=== PATIENT | male | born 1945 | race Caucasian/White ===

== ENCOUNTER → 2016-11-01 06:51 | Day surgery (SDC) | payer BC ==
[~2016-11-01 06:51] MED LIST: Acetaminophen TAB* 325 MG PO PRN; Buffered Lidocaine 1% SYRIN* 3 ML/SYR SYRINGE INTRADERM ONE; Cyclopentolate 1% OPTH.SOL* 2 ML BTL ONE; Flurbiprofen 0.03% OPTH.SOL* 2.5 ML BTL ONE; Lidocaine 1% MPF* 2 ML VIAL ONE; Lidocaine 2% EPI 1:200000 MPF* 20 ML VIAL ONE; Midazolam* 1 MG/ML 2 ML VIAL (2 MG) ONE; Neomycin/Polymy/Dex OPTH.SUSP* MAXITROL 0.1% 5 ML ONE; Phenylephrine 2.5% OPTH.SOL* 2 ML BTL ONE; Povidone Iodine 5% OPTH* 30 ML BTL ONE; Proparacaine 0.5% OPHTH.SOL* 15 ML BTL ONE; acetaZOLAMIDE TAB* 250 MG ONE
[2016-11-01 09:21] VITALS: BP 121/72
--- NOTE | 2016-11-01 16:27 | OP ---
DATE OF OPERATION: 11/01/16 [facility] DATE OF : 47 SURGEON: Constantino Stack MD. PREOPERATIVE DIAGNOSIS: Cataract, left eye. POSTOPERATIVE DIAGNOSIS: Cataract, left eye. OPERATIVE PROCEDURE: Phacoemulsification, left eye, with IOL. DESCRIPTION OF PROCEDURE: The patient was brought to the operating room after being given 1/2% Alcaine with epinephrine drops in the preoperative area. The eye was prepped and draped in the usual sterile fashion. Sterile drape and eyelid speculum were placed. Again, topical 1/2% Alcaine with epinephrine was given. A paracentesis incision was made at the 3 o'clock position with the No.75 blade. Clear cornea incision 2.2 x 2.2-mm was created at the 6 o'clock position starting at the anterior limbus using the 2.2-mm keratome. The anterior chamber was irrigated with 0.4 mL of 1% non-preservative intracameral lidocaine and filled with DisCoVisc. A capsulorrhexis was completed using the cystotome and the Utrata forceps. Hydrodissection was performed with balanced salt solution. The lens nucleus was removed with the Phacoemulsification handpiece without incident. Cortex was removed with the irrigation-aspiration handpiece. The capsular bag was re-inflated using DisCoVisc and an [id number] implant was inserted with the shooter. The irrigation-aspiration handpiece was used to remove all residual DisCoVisc. The eye was refilled with balanced salt solution and the wound checked and found to be watertight. Topical Maxitrol drops were given. [id number]/[facility] #: [id number] [facility]
== END | disposition home or self-care (01) ==
LOC: OREAST 06:51
PROVIDERS: ATTEND Specialist
DX: H25.812 Combined forms of age-related cataract, left eye (principal); H43.812 Vitreous degeneration, left eye; H35.371 Puckering of macula, right eye; Z85.46 Personal history of malignant neoplasm of prostate
CPT/HCPCS: J2250; V2632

== ENCOUNTER 2019-10-14 19:58 | Emergency (ER) | payer MEDICARE, BC ==
--- OUTSIDE RECORDS SUMMARY | 2019-10-14 20:25 | XMS REPORT | Summary of Care ---
:1945 Author Organization [facility] Address [address] [facility] [place] [address] Care Team Providers Name Role Phone Kerry Morse MD Primary Care Provider Reason for Visit Reason Comments Check Up cronic hiccups, 3 big bowl movements yesterday, nausiated and vomitting Encounter Details Date Type Department Care Team Description 10/10/[address] Mini Heartburn (Primary Dx); Practice Kerry Gale MD Chest pressure; [address] Bilious vomiting with nausea; [place] [address] [place] [address] Hiccups; [phone] Need for vaccination Allergies Active Allergy Reactions Severity Noted Date Comments Aspirin 10/09/2007 TINNITUS documented as of this encounter (statuses as of 10/10/2019) Medications Medication Sig Dispensed Refills Start Date End Date Status clomiPHENE Take 25 mg by 0 Active (CLOMID) 50 MG mouth EVERY Oral Tab OTHER DAY. ciclopirox 1 Appl by 1 Tube 1 06/27/2016 Active (LOPROX) 0.77 % Topical route Apply externally TWICE DAILY. Cream Ibuprofen 200 MG Take 200 mg 0 Active Oral Cap by mouth DAILY NEEDED. naproxen Take 250 mg 0 Active (NAPROSYN) 250 MG by mouth TWO Oral Tab TIMES DAILY NEEDED. ondansetron Take 1 Tab by 20 Tab 1 10/10/2019 Active (ZOFRAN ODT) 4 MG mouth TWO Oral TABLET TIMES DAILY DISPERSIBLEIndica NEEDED tions: Bilious (nausea, vomiting with vomiting). nausea famotidine Take 1 Tab by 30 Tab 1 10/10/2019 Active (PEPCID) 40 MG mouth DAILY Oral NEEDED TabIndications: (heartburn). Bilious vomiting with nausea diclofenac 2 g by 1 Tube 3 08/29/2019 Discontinued (No (VOLTAREN) 1 % Topical route 0 longer clinically Transdermal FOUR TIMES indicated) GelIndications: DAILY. Acute pain of right knee documented as of this encounter (statuses as of 10/10/2019) Active Problems Problem Noted Date Hallux valgus, right 11/05/2018 Overview: Added automatically from request for surgery [id number] Personal history of malignant neoplasm of prostate 10/09/2007 documented as of this encounter (statuses as of 10/10/2019) Resolved Problems Problem Noted Date Resolved Date Epistaxis 10/09/2007 10/05/2011 Vitreous Separation 10/09/2007 10/05/2011 documented as of this encounter (statuses as of 10/10/2019) Immunizations Name Administration Dates Next Due Influenza Vaccine High Dose 05/18/2018, 06/10/2016 PNEUMOCOCCAL POLYSACCHARIDE VACCINE 10/30/2018 Pneumococcal Conjugate(13 Valent) 07/04/2016 TDAP Vaccine 07/04/2016 documented as of this encounter Social History Tobacco Use Types Packs/Day Years Used Date Never Smoker Smokeless Tobacco: Never Used Alcohol Use Drinks/Week oz/Week Comments Yes 2 Standard drinks or equivalent 2.0 rare Sex Assigned at Date Recorded Not on file documented as of this encounter Last Filed Vital Signs Vital Sign Reading Time Taken Comments Blood Pressure 126/68 10/10/2019 2:53 PM EST Pulse 68 10/10/2019 2:53 PM EST Temperature 37.5 10/10/2019 2:53 PM EST C (99.5 F) Respiratory Rate - - Oxygen Saturation 98% 10/10/2019 2:53 PM EST Inhaled Oxygen Concentration - - Weight 75.8 kg (167 lb) 10/10/2019 2:53 PM EST Height 167.6 cm (5' 6") 10/10/2019 2:53 PM EST Body Mass Index 26.95 10/10/2019 2:53 PM EST documented in this encounter Patient Instructions Patient InstructionsKerry Morse MD - 10/10/2019 2:40 PM ANTHONY suspect you have had a stomach virus. However if hiccups continue next week, please return. You can try famotidine 40 mg daily as needed to control heartburn. You can try Ondansetron twice a day as needed for nausea or vomiting. Follow a clear liquid diet and advance to a bland diet as tolerated. Resume a normal diet when feeling better. Your EKG is normal, however, I still recommend ER evaluation for any severe, unrelenting chest painor any worries it could be your heart. documented in this encounter Progress Notes Kerry Morse MD - 10/10/2019 2:40 PM EST PATIENT: Conrad Hassan : 1945 DATE OF SERVICE: 10/10/2019 CHIEF COMPLAINT: Chief Complaint Patient presents with ? Check Up cronic hiccups, 3 big bowl movements yesterday, nausiated and vomitting Subjective HISTORY OF PRESENT ILLNESS: Conrad Hassan is a 73-y.o. male. Vomiting, hiccups Symptoms started after a large bowel movement yesterday morning and upper abdominal bloating. Yesterday he started almost constant hiccupping. He could feel liquid in his stomach, became nauseated, then vomited green bilious fluid. He vomited 6 times total, last was this morning. He had 3 stool yesterday, none today. Hiccups are less today than yesterday. No ill contacts. Emesis The history is provided by the patient. This is a new problem. The current episode started yesterday. The problem has been rapidly improving. The problem occurs 2 - 4 times per day. The emesis has an appearance of stomach contents and bilious. There has been no fever. Associated symptoms include sweats. Pertinent negatives include no chills, no fever, no abdominal pain, no diarrhea , no headaches and no cough. Risk factors: no ill contacts, no recent travel. Past Medical History: Diagnosis Date ? Cancer (HCC) prostate cancer s/p surgery ? Hallux abductovalgus with bunions ? Low testosterone on Clomid ? Nephrolithiasis once 2012 or so ? Personal history of malignant neoplasm of prostate 10/09/2007 ? Vitreous Separation 10/09/2007 Family History Problem Relation Age of Onset ? Heart Father CORONARY DISEASE 50'S; CHF ? Cancer Father prostate, skin, lung cancer ? Arthritis Mother ? Cancer Mother skin ? Obesity Brother ? No Known Problems Child ? Diabetes Child ? Cancer Other UNCLE - PROSTATE CANCER ? Clotting Disorder No family history ? Colitis No family history ? Dislocations No family history ? Heart Disease No family history ? Osteoporosis No family history ? Psoriasis No family history ? Rashes/Skin Problems No family history ? Severe Sprains No family history Current Outpatient Medications Medication Sig ? ciclopirox (LOPROX) 0.77 % Apply externally Cream 1 Appl by Topical route TWICE DAILY. ? clomiPHENE (CLOMID) 50 MG Oral Tab Take 25 mg by mouth EVERY OTHER DAY. ? famotidine (PEPCID) 40 MG Oral Tab Take 1 Tab by mouth DAILY NEEDED ( heartburn). ? Ibuprofen 200 MG Oral Cap Take 200 mg by mouth DAILY NEEDED. ? naproxen (NAPROSYN) 250 MG Oral Tab Take 250 mg by mouth TWO TIMES DAILY NEEDED. ? ondansetron (ZOFRAN ODT) 4 MG Oral TABLET DISPERSIBLE Take 1 Tab by mouth TWO TIMES DAILY ASNEEDED (nausea, vomiting). No current facility-administered medications for this visit. Allergies Allergen Reactions ? Aspirin TINNITUS Social History Socioeconomic History ? Marital status: Spouse name: Not on file ? Number of children: Not on file ? Years of education: Not on file ? Highest education level: Not on file Occupational History ? Not on file Social Needs ? Financial resource strain: Not on file ? Food insecurity Worry: Not on file Inability: Not on file ? Transportation needs Medical: Not on file Non-medical: Not on file Tobacco Use ? Smoking status: Never Smoker ? Smokeless tobacco: Never Used Substance and Sexual Activity ? Alcohol use: Yes Alcohol/week: 2.0 standard drinks Types: 2 Standard drinks or equivalent per week Comment: rare ? Drug use: No ? Sexual activity: Yes Partners: Female Lifestyle ? Physical activity Days per week: Not on file Minutes per session: Not on file ? Stress: Not on file Relationships ? Social connections Talks on phone: Not on file Gets together: Not on file Attends mormonism service: Not on file Active member of club or organization: Not on file Attends meetings of clubs or organizations: Not on file Relationship status: Not on file ? Intimate partner violence Fear of current or ex partner: Not on file Emotionally abused: Not on file Physically abused: Not on file Forced sexual activity: Not on file Other Topics Concern ? Back Care Not Asked ? Bike Helmet Not Asked ? Blood Transfusions No ? Caffeine Concern Yes Comment: 1.5 quart coffee, 1/2 ? Exercise Yes Comment: no regular, walks ? Hobby Hazards Not Asked ? International Travel Yes Comment: [place] yearly for a fast ? Service Not Asked ? Occupational Exposure No ? Seat Belt Yes ? Self-Exams Not Asked ? Sleep Concern Yes Comment: mild insomnia ? Special Diet No ? Stress Concern No ? 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 Routine exercise: no formal----walks Pets: 1 dog/ 2 cats. REVIEW OF SYSTEMS: Review of Systems Constitutional: Negative for chills and fever. HENT: Negative for congestion, ear pain, sinus pain and sore throat. Eyes: Negative for redness. Respiratory: Negative for cough, hemoptysis, sputum production, shortness of breath and wheezing. Cardiovascular: Negative for chest pain, palpitations and leg swelling. Gastrointestinal: Positive for heartburn, nausea and vomiting. Negative for abdominal pain, blood instool, constipation, diarrhea and melena. Had upper abdominal/epigastric pressure yesterday, gone today Genitourinary: Negative for dysuria. Skin: Negative for rash. Neurological: Negative for headaches. Objective PHYSICAL EXAM: VITALS: BP 126/68 (BP Location: Left arm, Patient Position: Sitting) | Pulse 68 | Temp 99.5 F(37.5 C) (Tympanic) | Ht 5' 6" (1.676 m) | Wt 167 lb (75.8 kg) | SpO2 98% | BMI 26.95 kg/m Body mass index is 26.95 kg/m. Physical Exam Vitals signs reviewed. Constitutional: General: He is not in acute distress. Appearance: Normal appearance. He is well-developed. He is not ill-appearing , toxic-appearing or diaphoretic. HENT: Head: Normocephalic and atraumatic. Right Ear: Tympanic membrane, ear canal and external ear normal. Left Ear: Tympanic membrane, ear canal and external ear normal. Nose: Nose normal. No congestion or rhinorrhea. Mouth/Throat: Pharynx: No oropharyngeal exudate or posterior oropharyngeal erythema. Eyes: General: No scleral icterus. Right eye: No discharge. Left eye: No discharge. Conjunctiva/sclera: Conjunctivae normal. Neck: Musculoskeletal: Normal range of motion and neck supple. No neck rigidity or muscular tenderness. Vascular: No carotid bruit. Cardiovascular: Rate and Rhythm: Normal rate and regular rhythm. Heart sounds: No murmur. No friction rub. No gallop. Pulmonary: Effort: Pulmonary effort is normal. Breath sounds: Normal breath sounds. No wheezing, rhonchi or rales. Abdominal: General: Abdomen is flat. Bowel sounds are normal. There is no distension. Palpations: Abdomen is soft. There is no mass. Tenderness: There is no abdominal tenderness. There is no right CVA tenderness, left CVA tenderness, guarding or rebound. Musculoskeletal: Normal range of motion. General: No tenderness. Right lower leg: No edema. Left lower leg: No edema. Lymphadenopathy: Cervical: No cervical adenopathy. Neurological: General: No focal deficit present. Mental Status: He is alert and oriented to person, place, and time. Psychiatric: Behavior: Behavior normal. Thought Content: Thought content normal. Judgment: Judgment normal. ASSESSMENT / IMPRESSION: ICD-9-CM ICD-10-CM 1. Heartburn 787.1 R12 AMBULATORY 12 LEAD EKG (GLOBAL) 2. Chest pressure 786.59 R07.89 AMBULATORY 12 LEAD EKG (GLOBAL) 3. Bilious vomiting with nausea 787.04 R11.14 ondansetron (ZOFRAN ODT) 4 MG Oral TABLET DISPERSIBLE famotidine (PEPCID) 40 MG Oral Tab 4. Hiccups 786.8 R06.6 5. Need for vaccination V05.9 Z23 MS SHINGRIX (ZOSTER) EKG: S dm, rate 58, otherwise normal, no change from last EKG Plan Patient Instructions I suspect you have had a stomach virus. However if hiccups continue next week, please return. You can try famotidine 40 mg daily as needed to control heartburn. You can try Ondansetron twice a day as needed for nausea or vomiting. Follow a clear liquid diet and advance to a bland diet as tolerated. Resume a normal diet when feeling better. Your EKG is normal, however, I still recommend ER evaluation for any severe, unrelenting chest painor any worries it could be your heart. Author: Kerry Morse MD 10/10/2019 16:44 documented in this encounter Plan of Treatment Name Type Priority Associated Diagnoses Order Schedule AMBULATORY 12 LEAD EKG EKG Routine Heartburn Ordered: 10/10/2019 (GLOBAL) Chest pressure Health Maintenance Due Date Last Done Comments MEDICARE ANNUAL WELLNESS 1945 VISIT ZOSTER IMMUNIZATION SERIES 1996 (1 of 2) DEPRESSION SCREENING 10/31/2019 10/30/2018 FALL RISK ASSESSMENT 10/31/2019 10/30/2018, 10/30/2018 LIPID DISORDER SCREENING 06/20/2021 06/20/2016, 03/02/2010, 05/01/2005 Colonoscopy 08/22/2021 08/22/2016, 07/16/2012, 06/20/2012 (Previously completed), Additional history exists DTaP/Tdap/Td Vaccines (2 - 07/04/2026 07/04/2016 Tdap) PNEUMOCOCCAL 65+YRS Completed 10/30/2018, 07/04/2016 HEPATITIS A IMMUNIZATION Aged Out No longer eligible SERIES based on patient's age to complete this topic HPV IMMUNIZATION SERIES Aged Out No longer eligible based on patient's age to complete this topic MENINGOCOCCAL VACCINE IMM Aged Out No longer eligible based on patient's age to complete this topic documented as of this encounter Implants Implanted Type Area Md Ophthalmologist Device Shelf Model / Identifier Expiration Serial / Lot Date Screw 2.5 X16mm Cannulated Right: [employer] 11/22/2020 [id number] / Implanted: Qty: 1 on 11/22/2018 by Shannon Oliveira DPM at [facility] / Staple [id number] Yunior Fix Nitinol Right: [employer] [id number] / Implanted: Qty: 1 on 11/22/2018 by Shannon Oliveira DPM at [facility] [employer] [facility] / Allowap Ds 2 X4 Right: [employer] 11/23/2019 [id number] / Implanted: Qty: 1 on 11/22/2018 by Shannon Oliveira DPM at [facility] [employer] [facility] / [id number] documented as of this encounter Results Not on filedocumented in this encounter Visit Diagnoses Diagnosis Heartburn Chest pressure Other chest pain Bilious vomiting with nausea Hiccups Hiccough Need for vaccination Need for prophylactic vaccination and inoculation against unspecified single disease documented in this encounter Insurance Payer Benefit Plan / Subscriber ID Effective Dates Phone Address Type Group MEDICARE MEDICARE PART [id number] 2011-[facility] Medicare A & B t BCBS NATIONAL BC NATIONAL [id number] 2016-[facility] Blue t Cross/Blue Shield (Work) documented as of this encounter Advance Directives Type Date 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
--- OUTSIDE RECORDS SUMMARY | 2019-10-14 20:25 | XMS REPORT | Continuity of Care Document ---
:1945 External Reference #:[id number] Author Name Constantino Stack M.D. Address [address] [place] [address] Care Team Providers Name Role Phone Kerry Morse M.D. 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 Onset: 10/12/2015 Vitreous degeneration Constantino Stack M.D. Onset: 10/12/2015 Presence of intraocular lens Constantino Stack M.D. Onset: 10/12/2015 Combined form of senile cataract Constantino Stack M.D. Onset: 10/12/2016 Epiretinal membrane Constantino Stack M.D. Onset: 10/12/2016 Other secondary cataract, left eye Constantino Stack M.D. Onset: 12/04/2017 Retinal drusen Constantino Stack M.D. Onset: 01/15/2018 Social History Type Date Description Comments Sex Unknown ETOH Use Rarely consumes alcohol Tobacco Use Start: Unknown Patient has never smoked Recreational Drug Use Denies Drug Use Smoking Status Reviewed: 10/07/19 Patient has never smoked Allergies, Adverse Reactions, Alerts Active Allergies Reaction Severity Comments Date Aspirin [place] 10/12/2015 Medications Active Medications SIG Qnty Indications Ordering Provider Date Clomiphene Citrate Ruben Barrera M.D. 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 10/07/2019 H43.812 Vitreous degeneration, left eye Constantino Stack M.D. 10/07/2019 Z96.1 Presence of intraocular lens Constantino Stack M.D. Plan of Treatment 10/07/2019 - Constantino Stack M.D.H35.373 Puckering of macula, bilateralComments :Smoking can increase the risk of developing or worsening any eye related disease, as well as affect your overall health. If you are a smoker, we strongly recommend that you quit.If you are not a smoker, we strongly recommend that you do not start. A Macular Pucker is a wrinkling of the retina tissue. It can cause distortion in your vision. Please call the office if you notice a decrease or new distortion in your vision before then.Follow up:1 Year Follow Up OCT MAC You can expect to have your eyes dilated at your next visit. If Dr. Stack orders any additional testing, it may require extra time. We recommend that you bring sunglasses, as dilation drops often make you light sensitive until they wear off. We always recommend you bring someone to drive you home if you are uncomfortable driving with your eyes dilated. If you have any questions before your next visit, feel free to call our office at .H35.362 Drusen (degenerative) of macula, left eyeH43.812 Vitreous degeneration, left eyeComments:You have a Posterior Vitreous Detachment in your left eye. If you have any changes in your floaters or flashing lights, please contact this office.Z96.1 Presence of intraocular lensComments:The artificial lens implants in both eyes appear to be stable at this time. Functional Status Description No Information Available Mental Status Description No Information Available Referrals Description No Information Available
--- OUTSIDE RECORDS SUMMARY | 2019-10-14 20:25 | XMS REPORT | Summary of Care ---
:1945 Author Organization [facility] Address 1 [facility] [place] [address] Care Team Providers Name Role Phone Kerry Morse MD Primary Care Provider Reason for Visit Reason Comments Check Up R knee pain, no injury, very painful and stiff. Pain started on 08/28 Encounter Details Date Type Department Care Team Description 08/29/2019 Office Visit Napavine Kinga Akbar, Acute pain of right Practice [facility] knee (Primary Dx) [address] [place] [address] [place] [address] [phone] Allergies Active Allergy Reactions Severity Noted Date Comments Aspirin 10/09/2007 TINNITUS documented as of this encounter (statuses as of 08/30/2019) Medications Medication Sig Dispensed Refills Start Date End Date Status clomiPHENE (CLOMID) 50 Take 25 mg by 0 Active MG Oral Tab mouth EVERY OTHER DAY. ciclopirox (LOPROX) 1 Appl by Topical 1 Tube 1 06/27/2016 Active 0.77 % Apply route TWICE DAILY. externally Cream Ibuprofen 200 MG Oral Take 200 mg by 0 Active Cap mouth DAILY NEEDED. naproxen (NAPROSYN) Take 250 mg by 0 Active 250 MG Oral Tab mouth TWO TIMES DAILY NEEDED. diclofenac (VOLTAREN) 2 g by Topical 1 Tube 3 08/29/2019 Active 1 % Transdermal route FOUR TIMES GelIndications: Acute DAILY. pain of right knee documented as of this encounter (statuses as of 08/30/2019) Active Problems Problem Noted Date Hallux valgus, right 11/05/2018 Overview: Added automatically from request for surgery [id number] Personal history of malignant neoplasm of prostate 10/09/2007 documented as of this encounter (statuses as of 08/30/2019) Resolved Problems Problem Noted Date Resolved Date Epistaxis 10/09/2007 10/05/2011 Vitreous Separation 10/09/2007 10/05/2011 documented as of this encounter (statuses as of 08/30/2019) Immunizations Name Administration Dates Next Due Influenza [...] Assigned at Date Recorded Not on file Job Start Date Occupation Industry Not on file Not on file Not on file Travel History Travel Start Travel End No recent travel history available. documented as of this encounter Last Filed Vital Signs Vital Sign Reading Time Taken Comments Blood Pressure 126/58 08/29/2019 10:35 AM EST Pulse 53 08/29/2019 10:35 AM EST Temperature - - Respiratory Rate - - Oxygen Saturation 98% 08/29/2019 10:35 AM EST Inhaled Oxygen Concentration - - Weight 76.2 kg (168 lb) 08/29/2019 10:35 AM EST Height 167.6 cm (5' 6") 08/29/2019 10:35 AM EST Body Mass Index 27.12 08/29/2019 10:35 AM EST documented in this encounter Patient Instructions Patient InstructionsKinga Oliveros NP - 08/29/2019 10:20 AM ESTDiclofenac gel - you can use this four times daily. Abdoul bandage for compression and comfort. Xray today - I will let you know when I have results. I think this could be patellar bursitis - try to avoid kneeling on your knees on hard floors, or at the very least use knee pads. Knee exercises below. If no improvement in one month, return for re-eval. Patient Education Prepatellar Bursitis Exercises About this topic A bursa is a small, fluid-filled sac. It acts as a cushion between your bone and tendon. A tendon chiquita thick band that attaches your muscle to the bone. Bursae help the tendons glide and let your joints move easier. In between the front of your kneecap (patella) and the skin, there is a bursa called the prepatellar bursa. This bursa can get swollen and hurt. This is called prepatellar bursitis. Exercises can help make this problem better. General Before starting with a program, ask your doctor if you are healthy enough to do these exercises. Your doctor may have you work with a sharepoint trainer or physical therapist to make a safe exercise program to meet your needs. Stretching Exercises Stretching exercises keep your muscles flexible. They also stop them from getting tight. Start by doing each of these stretches 2 to 3 times. In order for your body to make changes, you will need to hold these stretches for 20 to 30 seconds. Try to do the stretches 2 to 3 times each day. Do all exercises slowly. Hamstring stretches seated ? Sit up straight on the edge of a chair. Make sure you keep your back straight. Straighten your knee on your left leg. Keep your heel on the floor. Bend forward at the waist towards your foot while keeping your upper back straight. Bend forward until you feel a stretchin the back of your thigh. Repeat on the other leg. Calf stretches standing ? Stand about 12 to 18 inches (30 to 45 cm) away from a wall. Place your hands on the wall at shoulder level. Lean forward. Stretch your left leg straight behind you. Make sure the heel is flat on the floor and the knee straight. Now, bend the knee of the right leg. Be sure that the heel does not come up. Bend your left knee forward until you feel a stretch in the back ofthe calf of your right leg. This will feel strange, but it is the best way to stretch this calf muscle. Repeat on the other side. Thigh stretches standing ? Stand close to a wall or chair for balance. Bend one knee up and grab your foot behind you with the hand on the same side. Pull your foot closer to your back. You shouldfeel a stretch at the front of your thigh, hip, and knee. If you have trouble with balance, you can do this stretch by lying on your side and bending the top leg back. Strengthening Exercises Strengthening exercises keep your muscles firm and strong. Start by repeating each exercise 2 to 3 times. Work up to doing each exercise 10 times. Try to do the exercises 2 to 3 times each day. Do all exercises slowly. Quad sets ? Lie on your back with your sore leg straight. Tighten your front thigh muscle on your sore leg. Push the back of your knee into the bed or floor. If you are having trouble getting the knee straight, you may want to lie with a towel roll under the ankle for whatever timeframe you can. From time to time, do quad sets to straighten the knee more. Heel slides lying down ? Lie on your back with both legs straight. Start to bend one leg while sliding your heel on the bed. Once you have gotten your leg to bend as much as you can, slide your foot back down to straighten your leg. Repeat with the other leg. Straight leg raises lying down ? Lie on your back with one leg straight. Bend your other knee so the foot is flat on the bed. Push the knee of your straight leg into the bed in order to tighten your muscle. Keeping your leg straight, lift the leg up to the level of your other knee. Lower it back down. Repeat with the other leg. What will the results be? Less pain and swelling Better range of motion Increased strength Easier to walk and do other activities Helpful tips Stay active and work out to keep your muscles strong and flexible. Keep a healthy weight to avoid putting too much stress on your joints. Eat a healthy diet to keep your muscles healthy. Be sure you do not hold your breath when exercising. This can raise your blood pressure. If youtend to hold your breath, try counting out loud when exercising. If any exercise bothers you, stop right away. Always warm up before stretching. Heated muscles stretch much easier than cool muscles. Stretching cool muscles can lead to injury. Try walking or cycling at an easy pace for a few minutes to warm up your muscles. Do this againafter exercising. Never bounce when doing stretches. After exercising, it is a good idea to use ice. Place an ice pack or a bag of frozen peas wrapped in a towel over the painful part. Never put ice right on the skin. Do not leave the ice on more than 10 to 15 minutes at a time. Ice after activity may help decrease pain and swelling. Never ice before stretching. Doing exercises before a meal may be a good way to get into a routine. Avoid kneeling. If you have to kneel, use knee pads to protect your knee. Exercise may be slightly uncomfortable, but you should not have sharp pains. If you do get sharp pains, stop what you are doing. If the sharp pains continue, call your doctor. Where can I learn more? [employer] http://orthoinfo.aaos.org/topic.cfm?yfhae=E23728 Last Reviewed Date 2019-04-18 Consumer Information Use and Disclaimer This information is not specific medical advice and does not replace information you receive from your health care provider. This is only a brief summary of general information. It does NOT include allinformation about conditions, illnesses, injuries, tests, procedures, treatments, therapies, discharge instructions or life-style choices that may apply to you. You must talk with your health care provider for complete information about your health and treatment options. This information should not beused to decide whether or not to accept your health care providers advice, instructions or recommendations. Only your health care provider has the knowledge and training to provide advice that isright for you. Copyright Copyright 2019 [employer] and its affiliates and/or licensors. All rights reserved. documented in this encounter Progress Notes Kinga Oliveros NP - 08/29/2019 10:20 AM EST PATIENT: Conrad Hassan : 1945 DATE OF SERVICE: 08/29/2019 CHIEF COMPLAINT: Chief Complaint Patient presents with Check Up R knee pain, no injury, very painful and stiff. Pain started on 08/28 Subjective HISTORY OF PRESENT ILLNESS: Conrad Hassan is a 73-y.o. male. HPI Woke up with pain and stiffness in the right knee yesterday. No injury to the area. Continues today. Difficulty with ambulation. He is active at work and hasn't had any problems in the past with the knee. Feels like there is something wrong inside the joint, rather than musculoskeletal. Has felt "crunchy" today, not yesterday. Pain is both anterior and posterior, but worse in the front around the patella. Kneeling on the knee is very painful. 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 Does not wear any kind of knee protection. Not noticing any swelling or redness. No fevers, body aches chills malaise or fatigue. No other joint pain. Pain does not radiate. Prostate cancer removed July 2005. Noticed in am and did not get better throughout the day. Not sure if worse at the end of the day. Tried exercises which didn't help. Cant quite straighten as much as he feels he should be able, and also painful to fully flex the leg,although he is able to do so. No recent travel or surgeries. No chest pain palpitations or shortness of breath. Past Medical History: Diagnosis Date Cancer (HCC) prostate cancer s/p surgery Hallux abductovalgus with bunions Low testosterone on Clomid Nephrolithiasis once 2012 or so Personal history of malignant neoplasm of prostate 10/09/2007 Vitreous Separation 10/09/2007 Family History Problem Relation Age of Onset Heart Father CORONARY DISEASE 50'S; CHF Cancer Father prostate, skin, lung cancer Arthritis Mother Cancer Mother skin Obesity Brother No Known Problems Child Diabetes Child Cancer Other UNCLE - PROSTATE CANCER Clotting Disorder No family history Colitis No family history Dislocations No family history Heart Disease No family history Osteoporosis No family history Psoriasis No family history Rashes/Skin Problems No family history Severe Sprains No family history Current Outpatient Medications Medication Sig ciclopirox (LOPROX) 0.77 % Apply externally Cream 1 Appl by Topical route TWICE DAILY. clomiPHENE (CLOMID) 50 MG Oral Tab Take 25 mg by mouth EVERY OTHER DAY. diclofenac (VOLTAREN) 1 % Transdermal Gel 2 g by Topical route FOUR TIMES DAILY. Ibuprofen 200 MG Oral Cap Take 200 mg by mouth DAILY NEEDED. naproxen (NAPROSYN) 250 MG Oral Tab Take 250 mg by mouth TWO TIMES DAILY NEEDED. No current facility-administered medications for this visit. Allergies Allergen Reactions Aspirin TINNITUS Social History Socioeconomic History Marital status: Spouse name: Not on file Number of children: Not on file Years of education: Not on file Highest education level: Not on file Occupational History Not on file Social Needs Financial resource strain: Not on file Food insecurity Worry: Not on file Inability: Not on file Transportation needs Medical: Not on file Non-medical: Not on file Tobacco Use Smoking status: Never Smoker Smokeless tobacco: Never Used Substance and Sexual Activity Alcohol use: Yes Alcohol/week: 2.0 standard drinks Types: 2 Standard drinks or equivalent per week Comment: rare Drug use: No Sexual activity: Yes Partners: Female Lifestyle Physical activity Days per week: Not on file Minutes per session: Not on file Stress: Not on file Relationships Social connections Talks on phone: Not on file Gets together: Not on file Attends uatsdin service: Not on file Active member of club or organization: Not on file Attends meetings of clubs or organizations: Not on file Relationship status: Not on file Intimate partner violence Fear of current or ex partner: Not on file Emotionally abused: Not on file Physically abused: Not on file Forced sexual activity: Not on file Other Topics Concern Back Care Not Asked Bike Helmet Not Asked Blood Transfusions No Caffeine Concern Yes Comment: 1.5 quart coffee, 1/2 Exercise Yes Comment: no regular, walks Hobby Hazards Not Asked International Travel Yes Comment: [place] yearly for a fast Service Not Asked Occupational Exposure No Seat Belt Yes Self-Exams Not Asked Sleep Concern Yes Comment: mild insomnia Special Diet No Stress Concern No Weight Concern No 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 Routine exercise: no formal----walks Pets: 1 dog/ 2 cats. REVIEW OF SYSTEMS: Review of Systems Constitutional: Negative for chills, fever and malaise/fatigue. Musculoskeletal: Positive for joint pain (right knee). Negative for myalgias. Neurological: Positive for weakness (right leg). Negative for tingling and sensory change. Objective PHYSICAL EXAM: VITALS: BP 126/58 | Pulse 53 | Ht 5' 6" (1.676 m) | Wt 168 lb (76.2 kg) | SpO2 98% | BMI 27.12kg/m Body mass index is 27.12 kg/m. Physical Exam Vitals signs and nursing note reviewed. Constitutional: General: He is not in acute distress. Appearance: Normal appearance. He is normal weight. He is not ill-appearing. Pulmonary: Effort: Pulmonary effort is normal. Musculoskeletal: Right hip: Normal. Left hip: Normal. Right knee: He exhibits decreased range of motion (d/t pain) and effusion. He exhibits no swelling, no ecchymosis, no deformity, no erythema, normal alignment, no LCL laxity, no bony tenderness, normal meniscus and no MCL laxity. Tenderness found. Left knee: Normal. Right ankle: Normal. Right upper leg: Normal. Right lower leg: Normal. No edema. Left lower leg: No edema. Skin: General: Skin is warm and dry. Neurological: General: No focal deficit present. Mental Status: He is alert. Psychiatric: Mood and Affect: Mood normal. Behavior: Behavior normal. Thought Content: Thought content normal. Judgment: Judgment normal. ASSESSMENT / IMPRESSION: ICD-9-CM ICD-10-CM 1. Acute pain of right knee 719.46 M25.561 XR KNEE 4 OR MORE VIEWS RIGHT ( STANDARD) diclofenac (VOLTAREN) 1 % Transdermal Gel Plan 1. Acute pain of right knee -bursitis: Diclofenac gel - you can use this four times daily. Abdoul bandage for compression and comfort. Xray today - I will let you know when I have results. I think this could be patellar bursitis - try to avoid kneeling on your knees on hard floors, or at the very least use knee pads. Knee exercises below. If no improvement in one month, return for re-eval. - XR KNEE 4 OR MORE VIEWS RIGHT (STANDARD); Future - diclofenac (VOLTAREN) 1 % Transdermal Gel; 2 g by Topical route FOUR TIMES DAILY. Dispense: 1 Tube; Refill: 3 Author: Kinga Oliveros NP 08/30/2019 07:50 documented in this encounter Plan of Treatment Name Type Priority Associated Diagnoses Date/Time XR KNEE 4 OR MORE Imaging Routine Acute pain of right knee 08/29/2019 11: 28 AM EST VIEWS RIGHT (STANDARD) Name Type Priority Associated Diagnoses Order Schedule XR KNEE 4 OR MORE Imaging Routine Acute pain of right knee Expected: 2019, VIEWS RIGHT Expires: 08/28/2020 (STANDARD) Health Maintenance Due Date Last Done Comments [...] of this encounter Implants Implanted Type Area Aix Administrator Device Shelf Model / Identifier Expiration Serial / Lot Date Screw 2.5 X16mm Cannulated Right: Integra [employer] 11/22/2020 [id number] / Implanted: Qty: 1 on 11/22/2018 by Shannon Oliveira DPM at [facility] / Staple [id number] Yunior Fix Nitinol Right: [employer] [id number] / Implanted: Qty: 1 on 11/22/2018 by Shannon Oliveira DPM at [facility] / Allowap Ds 2 X4 Right: [employer] 11/23/2019 [id number] / Implanted: Qty: 1 on 11/22/2018 by Shannon Oliveira DPM at [facility] / [id number] documented as of this encounter Results Not on filedocumented in this encounter Visit Diagnoses Diagnosis Acute pain of right knee documented in this encounter Insurance Payer Benefit Plan / Subscriber ID Effective Dates Phone Address Type Group MEDICARE MEDICARE PART xxxxxxxxxxx 2011-[place] Medicare A & B t [facility] NATIONAL [facility] N[facility] xxxxxxxxx 2016-[facility] Blue t Cross/Blue Shield (Work) documented as of this encounter Advance Directives Type Date Recorded Patient Religious Education Director Explanation Advance Directives 08/31/2016 2:21 PM Health Care Proxy
[2019-10-15 01:31] LABS: ABS Eosinophils 0.2 10^3/ul (0-0.6); ABS Lymphocytes 1.7 10^3/ul (1.0-4.8); ABS Monocytes 0.6 10^3/ul (0-0.8); ABS Neutrophils 3.8 10^3/ul (1.5-7.7); Eosinophil % 3.7 %; Hematocrit 46 % (42-52); Hemoglobin 15.8 g/dL (14.0-18.0); Lymphocyte % 26.7 %; Mean Corpuscular HGB Conc 35 g/dL (31-36); Mean Corpuscular Hemoglobin 32 pg (27-31); Mean Corpuscular Volume 92 fL (80-94); Mean Platelet Volume 8.5 fL (7.4-10.4); Nucleated Red Blood Cells % 0.1; Platelet Count 195 10^3/uL (150-450); Red Blood Count 4.94 10^6 /uL (4.18-5.48); Red Cell Distribution Width 14 % (10-15); White Blood Count 6.3 10^3/uL (3.5-10.8)
[2019-10-15 01:47] LABS: Albumin 3.9 g/dL (3.2-5.2); Albumin/Globulin Ratio 1.7 (1-3); BUN/Creatinine Ratio 19.8 (8-20); Calcium 9.2 mg/dL (8.6-10.3); EGFR African American 68.1 (>60); EGFR Non-African American 56.3 (>60); Globulin 2.3 g/dL (2-4); Total Bilirubin 0.5 mg/dL (0.2-1.0); Total Protein 6.2 g/dL (6.4-8.9)
[2019-10-15 01:49] LABS: INR 1.3 (0.82-1.09)
[2019-10-15] MEDS ORDERED: Lidocaine 2% VISCOUS* 15 ML UDC PO ONE (02:53)
[2019-10-15] MEDS ORDERED: Al Hydrox/Mg Hydrox/Simet LIQ* 30 ML UDC PO ONE (02:53)
[2019-10-15] MEDS ORDERED: Baclofen TAB* 10 MG PO ONE (02:53)
[2019-10-15 03:48] VITALS: BP 139/82
--- NOTE | 2019-10-15 06:30 | ED ---
Complex/Multi-Sys Presentation - HPI Summary HPI Summary: Patient is a 73 y/o M presenting to [facility] with complaints of N/V, epiagstric pain, SOB, and hiccups. He states that he had hiccups onset 10/09/19; remainder of Sx onset afterwards. Patient states that the hiccups have been chronic. He notes that he was experiencing SOB this evening and came to ED for evaluation as a result. Fever and cough are denied. Patient denies Hx of GERD; he states that he was evaluated by provider in [place] and was prescribed two antacid medications. However, he has not had any relief with these medications. No PMHx otherwise noted. He takes a testosterone booster. PSHx of cataract surgery, prostatectomy, inguinal hernias reported. FMHx of HTN noted. he notes rare alcohol consumption, no tobacco or substance usage. Home medications and allergies are reviewed. - History Of Current Complaint Chief Complaint: EDGeneral Time Seen by Provider: 10/15/19 00:37 Hx Obtained From: Patient Onset/Duration: Lasting Days Timing: Days Location: Pain At: - epigastric area Associated Signs And Symptoms: Positive: SOB, Nausea, Vomiting, Abdominal Pain, Other - positive - hiccups. Negative: Cough, Fever - Allergies/Home Medications Allergies/Adverse Reactions: Allergies Allergy/AdvReac Type Severity Reaction Status Date / Time aspirin Allergy Intermediate Tinnitus Verified 10/15/19 03:21 Home Medications: Home Medications Famotidine 40 mg PO SEE INSTRUCTIONS PRN 10/15/19 [History Confirmed 10/15/19] clomiPHENE citrate [Clomiphene Citrate] 25 mg PO EVERY OTHER DAY 10/15/19 [ History Confirmed 10/15/19] PMH/Surg Hx/FS Hx/Imm Hx History: Reports: Hx Kidney Stones - 10 YRS AGO Sensory History: Reports: Hx Contacts or Glasses - GLASSES Opthamlomology History: Reports: Hx Contacts or Glasses - GLASSES - Cancer History Cancer Type, Location and Year: prostate ca - removed - in remission - Surgical History Surgery Procedure, Year, and Place: prostatectomy - 2004, [facility] [place]. RIGHT cataract, vitrectomy right eye - 2007. bilat inguinal hernia repair, [facility] [place] Hx Anesthesia Reactions: No Infectious Disease History: No Infectious Disease History: Denies: Hx Clostridium Difficile, Hx Hepatitis, Hx Human Immunodeficiency Virus (HIV), Hx of Known/Suspected MRSA, Hx Shingles, Hx Tuberculosis, History Other Infectious Disease, Traveled Outside the [place] in Last 30 Days - Family History Known Family History: Positive: Hypertension - Social History Alcohol Use: Rare Substance Use Type: Reports: None Smoking Status (MU): Never Smoked Tobacco - Additional Comments History Additional Comments: PSHx of cataract surgery, prostatectomy, inguinal hernias reported. FMHx of HTN noted. Review of Systems - ROS Summary Review of Systems Summary: Home Medications Medication Instructions Recorded Confirmed Type Famotidine 40 mg PO SEE INSTRUCTIONS PRN 10/15/19 10/15/19 History clomiPHENE citrate [Clomiphene 25 mg PO EVERY OTHER DAY 10/15/19 10/15/19 History Citrate] Negative: Fever Positive: Shortness Of Breath, Other - Hiccups . Negative: Cough Positive: Abdominal Pain, Vomiting, Nausea All Other Systems Reviewed And Are Negative: Yes Physical Exam - Summary Physical Exam Summary: General: Well-developed, Well-nourished male. No acute distress. HEENT: Normocephalic, Atraumatic. Eyes: Conjuctiva normal, PERRL. Oropharynx: Clear, mucous membranes moist, (-) exudates. Neck: Soft, FROM, (-) lymphadenopathy, (-) thyromegaly, (-) JVD. Cardiovascular: Normal sinus rhythm, (-) murmur. Lungs: Clear to auscultation bilaterally (-) wheezes, (-) rales, (-) rhonchi. Abdomen: Soft, mild epigastric tenderness, non-distended, (-) organomegaly, normal bowel sounds. Back: (-) CVA tenderness Extremities: No edema. Skin: Warm, dry, (-) rash. Neuro: Alert and oriented x3, moves all extremities equally. No ataxia. No gait disturbance. No sensory deficit. Normal strength, normal sensation. Psychiatric: Mildly anxious-appearing Triage Information Reviewed: Yes Vital Signs On Initial Exam: Initial Vitals Temp Pulse Resp BP Pulse Ox 98.7 F 67 18 137/95 99 10/14/19 20:00 10/14/19 20:00 10/14/19 20:00 10/14/19 20:00 10/14/19 20:00 Vital Signs Reviewed: Yes Procedures - Sedation Patient Received Moderate/Deep Sedation with Procedure: No Diagnostics - Vital Signs Vital Signs Temp Pulse Resp BP Pulse Ox 10/15/19 03:48 97.1 F 56 18 139/82 96 10/15/19 03:43 54 139/82 96 10/15/19 03:00 55 97 10/15/19 02:50 52 145/88 96 10/15/19 02:20 56 129/86 98 10/15/19 02:00 54 95 10/15/19 01:50 55 138/87 97 10/15/19 01:00 56 97 10/15/19 00:50 150/94 10/15/19 00:20 54 142/85 96 10/15/19 00:04 58 95 10/15/19 00:00 55 95 10/14/19 23:51 58 96 10/14/19 23:50 57 148/87 96 10/14/19 22:52 98.8 F 58 18 141/91 97 10/14/19 20:00 98.7 F 67 18 137/95 99 - Laboratory Lab Results: Lab Results 10/15/19 10/15/19 10/15/19 Range/Units 01:08 01:08 01:08 WBC 6.3 (3.5-10.8) 10^3/uL RBC 4.94 (4.18-5.48) 10^6 /uL Hgb 15.8 (14.0-18.0) g/dL Hct 46 (42-52) % MCV 92 (80-94) fL MCH 32 H (27-31) pg MCHC 35 (31-36) g/dL RDW 14 (10-15) % Plt Count 195 (150-450) 10^3/uL MPV 8.5 (7.4-10.4) fL Neut % (Auto) 59.9 % Lymph % (Auto) 26.7 % Rogers % (Auto) 9.0 % Eos % (Auto) 3.7 % Baso % (Auto) 0.7 % Absolute Neuts (auto) 3.8 (1.5-7.7) 10^3/ul Absolute Lymphs (auto) 1.7 (1.0-4.8) 10^3/ul Absolute Monos (auto) 0.6 (0-0.8) 10^3/ul Absolute Eos (auto) 0.2 (0-0.6) 10^3/ul Absolute Basos (auto) 0.0 (0-0.2) 10^3/ul Absolute Nucleated RBC 0.0 10^3/ul Nucleated RBC % 0.1 INR (Anticoag Therapy) (0.82-1.09) Sodium 139 (135-145) mmol/L Potassium 4.0 (3.5-5.0) mmol/L Chloride 105 (101-111) mmol/L Carbon Dioxide 29 (22-32) mmol/L Anion Gap 5 (2-11) mmol/L BUN 25 H (6-24) mg/dL Creatinine 1.26 H (0.67-1.17) mg/dL Est GFR ( Amer) 68.1 (>60) Est GFR (Non-Af Amer) 56.3 (>60) BUN/Creatinine Ratio 19.8 (8-20) Glucose 139 H (70-100) mg/dL Lactic Acid 1.5 (0.5-2.0) mmol/L Calcium 9.2 (8.6-10.3) mg/dL Total Bilirubin 0.50 (0.2-1.0) mg/dL AST 15 (13-39) U/L ALT 16 (7-52) U/L Alkaline Phosphatase 44 (34-104) U/L Troponin I 0.00 (<0.03) ng/mL B-Natriuretic Peptide (<=100) pg/mL Total Protein 6.2 L (6.4-8.9) g/dL Albumin 3.9 (3.2-5.2) g/dL Globulin 2.3 (2-4) g/dL Albumin/Globulin Ratio 1.7 (1-3) 10/15/19 10/15/19 Range/Units 01:08 01:08 WBC (3.5-10.8) 10^3/uL RBC (4.18-5.48) 10^6 /uL Hgb (14.0-18.0) g/dL Hct (42-52) % MCV (80-94) fL MCH (27-31) pg MCHC (31-36) g/dL RDW (10-15) % Plt Count (150-450) 10^3/uL MPV (7.4-10.4) fL Neut % (Auto) % Lymph % (Auto) % Rogers % (Auto) % Eos % (Auto) % Baso % (Auto) % Absolute Neuts (auto) (1.5-7.7) 10^3/ul Absolute Lymphs (auto) (1.0-4.8) 10^3/ul Absolute Monos (auto) (0-0.8) 10^3/ul Absolute Eos (auto) (0-0.6) 10^3/ul Absolute Basos (auto) (0-0.2) 10^3/ul Absolute Nucleated RBC 10^3/ul Nucleated RBC % INR (Anticoag Therapy) 1.30 H (0.82-1.09) Sodium (135-145) mmol/L Potassium (3.5-5.0) mmol/L Chloride (101-111) mmol/L Carbon Dioxide (22-32) mmol/L Anion Gap (2-11) mmol/L BUN (6-24) mg/dL Creatinine (0.67-1.17) mg/dL Est GFR ( Amer) (>60) Est GFR (Non-Af Amer) (>60) BUN/Creatinine Ratio (8-20) Glucose (70-100) mg/dL Lactic Acid (0.5-2.0) mmol/L Calcium (8.6-10.3) mg/dL Total Bilirubin (0.2-1.0) mg/dL AST (13-39) U/L ALT (7-52) U/L Alkaline Phosphatase (34-104) U/L Troponin I (<0.03) ng/mL B-Natriuretic Peptide 33 (<=100) pg/mL Total Protein (6.4-8.9) g/dL Albumin (3.2-5.2) g/dL Globulin (2-4) g/dL Albumin/Globulin Ratio (1-3) Result Diagrams: 10/15/19 01:08 10/15/19 01:08 Lab Statement: Any lab studies that have been ordered have been reviewed, and results considered in the medical decision making process. - Radiology CXR Radiology Interpretation Completed By: ED Physician Summary of Radiographic Findings: No obvious infiltrate, no pleural effusion, pending official report. Complex Multi-Symp Course/Dx Course Of Treatment: 73-year-old male presents with days of hiccups. Nausea. Patient states he's tried all the home remedies that he's ever heard of. Patient has no other complaints. No significant findings on physical or workup. Given GI cocktail. Baclofen. Patient had significant relief of his symptoms. Was discharged home. Follow-up with PCP. Follow-up sooner for any worsening symptoms. During ED course, patient received lidocaine 15 mL PO, baclofen 10 mg PO, and Maalox 30 mL PO. - Diagnoses Provider Diagnoses: GERD (gastroesophageal reflux disease), Hiccups Discharge ED - Sign-Out/Discharge Documenting (check all that apply): Patient Departure - discharge - Discharge Plan Condition: Stable Disposition: HOME Patient Education Materials: Hiccups (ED), Gastroesophageal Reflux Disease (ED) Referrals: Kerry Morse MD [Primary Care Provider] - 3 Days Additional Instructions: PLEASE RETURN TO ED FOR ANY NEW OR CONCERNING SYMPTOMS. PLEASE FOLLOW UP WITH YOUR PRIMARY CARE PHYSICIAN WITHIN THREE DAYS. - Billing Disposition and Condition Condition: STABLE Disposition: Home - Attestation Statements Document Initiated by Malgorzataibe: Yes Documenting Scribe: FRAN CASTRO Provider For Whom Yisel is Documenting (Include Credential): OLEG VALDIVIA MD Scribe Attestation: IFRAN, scribed for OLEG VALDIVIA MD on 10/17/19 at 2112. Scribe Documentation Reviewed: Yes Provider Attestation: The documentation as recorded by the FRAN humphrey accurately reflects the service I personally performed and the decisions made by me, OLEG VALDIVIA MD Status of Scribe Document: Viewed
== END 2019-10-15 03:48 | disposition home or self-care (01) ==
LOC: ED 19:58
DX: K21.9 Gastro-esophageal reflux disease without esophagitis (principal); R06.6 Hiccough; R06.02 Shortness of breath; R11.2 Nausea with vomiting, unspecified; Z88.6 Allergy status to analgesic agent
CPT/HCPCS: 36415; 71045; 80053; 83605; 83880; 84484; 85025; 85610; 87040; 99283; A9270-GY